=== PATIENT | female | born 1985 | race Two or more races ===

== ENCOUNTER 2018-12-20 03:35 | Emergency (ER) | payer BC ==
[~2018-12-20] VITALS: Ht 165.1 cm; Wt 65.8 kg
[2018-12-20 03:54] VITALS: BP 110/61
== END 2018-12-20 04:22 | disposition home or self-care (01) ==
LOC: ER 03:45
DX: J32.9 Chronic sinusitis, unspecified (principal); J45.909 Unspecified asthma, uncomplicated; Z90.89 Acquired absence of other organs; Z60.2 Problems related to living alone